=== PATIENT | male | born 1985 | race Caucasian/White ===

== ENCOUNTER 2021-07-31 17:36 | Observation (INO) | payer MEDICAID ==
[2021-07-31] MEDS ORDERED: Sodium Chloride 0.9% 10 ML Syringe FLUSH PRN (17:37)
[2021-07-31] MEDS ORDERED: LORazepam 2 MG/ML SDV IVPUSH ONE (17:37)
[2021-07-31] MEDS ORDERED: Phenytoin 250 MG/5 ML SDV IVPUSH ONE (18:31)
[2021-07-31] MEDS ORDERED: HYDROmorphone 1 MG/ML Syringe IVPUSH ONE (18:51)
[2021-07-31] MEDS ORDERED: Sodium Chloride 0.9% 100 ML ONE (19:07)
[2021-07-31] MEDS ORDERED: Non-Formulary Medication 1 Each (Insulin Aspart [Novolog] 100 UNIT/ML Pen) SUBCNJ SCH (19:15)
[2021-07-31] MEDS ORDERED: Phenytoin 1,000 MG in Sodium Chloride 0.9% 100 ML IV ONE (19:15)
[2021-07-31] MEDS ORDERED: 50% Dextrose in Water 50 ML Syringe IVPUSH PRN (20:20)
[2021-07-31] MEDS ORDERED: Glucagon,Human Recombinant 1 MG Vial IM PRN (20:20)
[2021-07-31] MEDS: HYDROmorphone 1 MG/ML Syringe IVPUSH PRN (20:40)
[2021-07-31] MEDS: Gabapentin 400 MG Cap PO SCH (21:00)
[2021-07-31] MEDS: Capsaicin 0.025% Crm 60 GM Tube TOP SCH (21:00)
[2021-07-31] MEDS: Phenytoin 100 MG Cap.ER PO SCH (21:00)
[2021-07-31] MEDS: Sodium Chloride 0.9% 1,000 ML IV SCH (21:01)
[2021-07-31] MEDS: Insulin Lispro 100 Unit/ML 3 ML KwikPen SUBCUT SCH (21:25)
[2021-07-31] MEDS: Mirtazapine 15 MG Tab PO SCH (21:31)
[2021-07-31] MEDS: Prazosin 1 MG Cap PO SCH (21:31)
[2021-08-01] MEDS: HYDROmorphone 1 MG/ML Syringe IVPUSH PRN ×6 (00:57→21:14)
[2021-08-01] MEDS ORDERED: Iohexol 647 MG/ML 50 ML SDV PO SCH (01:30)
[2021-08-01] MEDS ORDERED: Iopamidol 612 MG/ML 50 ML SDV PO ONE (01:46)
[2021-08-01] MEDS: Sodium Chloride 0.9% 1,000 ML IV SCH ×3 (04:24→21:16)
[2021-08-01] MEDS: Gabapentin 400 MG Cap PO SCH (05:04)
[2021-08-01] MEDS ORDERED: Sodium Chloride 0.9% 50 ML IV STA (05:49)
[2021-08-01] MEDS ORDERED: Iopamidol 612 MG/ML 100 ML Bottle IV STA (05:49)
[2021-08-01] MEDS ORDERED: Insulin Lispro 100 Unit/ML 3 ML KwikPen SUBCUT SCH (07:00)
[2021-08-01] MEDS: Insulin Lispro 100 Unit/ML 3 ML KwikPen SUBCUT SCH ×4 (09:03→21:01)
[2021-08-01] MEDS: DULoxetine 30 MG Cap PO SCH ×2 (09:38→09:39)
[2021-08-01] MEDS: Phenytoin 100 MG Cap.ER PO SCH ×2 (09:39→21:13)
[2021-08-01] MEDS: Capsaicin 0.025% Crm 60 GM Tube TOP SCH ×2 (09:41→21:14)
[2021-08-01] MEDS: Gabapentin 100 MG Cap PO SCH ×3 (09:45→21:13)
[2021-08-01] MEDS: Mirtazapine 15 MG Tab PO SCH (21:13)
[2021-08-01] MEDS: Prazosin 1 MG Cap PO SCH (21:13)
[2021-08-02] MEDS ORDERED: Phenytoin 100 MG Cap.ER PO SCH
[2021-08-02] MEDS: HYDROmorphone 1 MG/ML Syringe IVPUSH PRN ×3 (02:06→10:37)
[2021-08-02] MEDS: Sodium Chloride 0.9% 1,000 ML IV SCH (05:30)
[2021-08-02] MEDS: Gabapentin 100 MG Cap PO SCH ×2 (05:30→09:33)
[2021-08-02] MEDS: DULoxetine 30 MG Cap PO SCH ×2 (09:31)
[2021-08-02] MEDS: Capsaicin 0.025% Crm 60 GM Tube TOP SCH (09:32)
[2021-08-02] MEDS: Phenytoin 100 MG Cap.ER PO SCH (09:32)
[2021-08-02] MEDS: Insulin Lispro 100 Unit/ML 3 ML KwikPen SUBCUT SCH (09:37)
== END 2021-08-02 12:30 | disposition home or self-care (01) ==
LOC: JP.ED 17:36 → JP.ICU 18:55
PROVIDERS: ADMIT Internal Medicine; ATTEND Internal Medicine
DX: R56.9 Unspecified convulsions (principal); K85.90 Acute pancreatitis without necrosis or infection, unspecified; F41.9 Anxiety disorder, unspecified; F32.A Depression, unspecified; E11.9 Type 2 diabetes mellitus without complications; F17.210 Nicotine dependence, cigarettes, uncomplicated; R51.9 Headache, unspecified; Z88.8 Allergy status to other drugs, medicaments and biological substances; Z79.899 Other long term (current) drug therapy; Z79.4 Long term (current) use of insulin
CPT/HCPCS: 36415; 74177; 80053; 80185; 80305-QW; 82947; 83605; 83690; 85025; 96365; 96375; 96376; 99283; 99285-25; A9270-GY; G0378; J1165; J1170; J1815; J2060; J3490; J7030; Q9967

== ENCOUNTER 2021-08-08 02:18 | Emergency (ER) | payer MEDICAID ==
[2021-08-08] MEDS ORDERED: Gabapentin 300 MG Cap PO ONE (02:55)
[2021-08-08] MEDS ORDERED: Insulin Regular, Human 100 Units/ML 3 ML Vial SUBCUT ONE (03:21)
[2021-08-08] MEDS ORDERED: Phenytoin 100 MG Cap.ER PO ONE (03:24)
== END 2021-08-08 04:15 | disposition other institution (70) ==
LOC: JP.ED 02:18 → EEVIPCON 02:18 → JP.ED 04:15
DX: R56.9 Unspecified convulsions (principal); F41.9 Anxiety disorder, unspecified; K21.9 Gastro-esophageal reflux disease without esophagitis; E11.65 Type 2 diabetes mellitus with hyperglycemia; Z72.0 Tobacco use; Z88.8 Allergy status to other drugs, medicaments and biological substances; Z79.899 Other long term (current) drug therapy; Z79.4 Long term (current) use of insulin
CPT/HCPCS: 36415; 80185; 82565; 82947; 83690; 84520; 85025; 99283; 99284; A9270-GY; J1815-GY